=== PATIENT | female | born 1990 | race Caucasian/White ===

== ENCOUNTER 2017-05-03 19:17 | Emergency (ER) | payer SELFPAY ==
[~2017-05-03] VITALS: Ht 167.6 cm; Wt 103.2 kg
[2017-05-03 19:21] VITALS: BP 127/74; TEMP 97.3
[2017-05-03 20:28] VITALS: PULSE 94
== END 2017-05-03 20:29 | disposition home or self-care (01) ==
LOC: COL.ER 19:17
DX: J02.9 Acute pharyngitis, unspecified (principal); G40.909 Epilepsy, unspecified, not intractable, without status epilepticus

== ENCOUNTER 2019-07-15 10:14 | Emergency (ER) | payer SELFPAY ==
[~2019-07-15] VITALS: Ht 167.6 cm; Wt 0.9 kg
[2019-07-15 10:28] VITALS: BP 129/72; TEMP 99.8
[2019-07-15 11:07] LABS: STREP SCREEN NEGATIVE
[2019-07-15 12:05] VITALS: PULSE 93
== END 2019-07-15 12:05 | disposition home or self-care (01) ==
LOC: COL.ER 10:14
PROVIDERS: Emergency Medicine
DX: J10.1 Influenza due to other identified influenza virus with other respiratory manifestations (principal); Z88.0 Allergy status to penicillin

== ENCOUNTER → 2021-06-16 | Outpatient (CLI) | payer SELFPAY | LOC: COL.CARD 03-13 10:00 | DX: G40.909 Epilepsy, unspecified, not intractable, without status epilepticus (principal) ==